=== PATIENT | male | born 1965 | race Caucasian/White ===

== ENCOUNTER 2019-06-28 10:24 | Emergency (ER) | payer OTHER ==
[~2019-06-28] VITALS: Ht 172.7 cm; Wt 92.1 kg
[2019-06-28] MEDS ORDERED: PLAVIX75 MG PO (10:48)
[2019-06-28] MEDS ORDERED: TRIGLIDE160 MG PO (10:49)
[2019-06-28] MEDS ORDERED: AVALIDE 300-121 EACH PO (10:50)
[2019-06-28] MEDS ORDERED: FORTAMET500 MG PO (10:50)
== END 2019-06-28 13:59 | disposition home or self-care (01) ==
LOC: ER 10:24
DX: J06.9 Acute upper respiratory infection, unspecified (principal)